=== PATIENT | female | born 1950 | race Caucasian/White ===

== ENCOUNTER 2021-10-18 18:06 | Inpatient (IN) | payer OTHER ==
[~2021-10-18] VITALS: Ht 167.6 cm; Wt 109.8 kg
[2021-10-18 20:19] VITALS: BP 164/66
[2021-10-18] MEDS ORDERED: SPIR25TA6 PO (20:49)
[2021-10-18] MEDS ORDERED: METF-440 PO (20:49)
[2021-10-18] MEDS ORDERED: EZET10TA16 PO (20:49)
[2021-10-18] MEDS ORDERED: LISI10TA29 PO (20:49)
[2021-10-18] MEDS ORDERED: CARV12.52 PO (20:49)
[2021-10-18] MEDS ORDERED: ASPI-1169 PO (20:49)
[2021-10-18] MEDS ORDERED: GLIP10TA11 PO (20:49)
[2021-10-18 20:56] VITALS: BP 164/62
[2021-10-18 21:00] VITALS: BP 154/68
--- NOTE | 2021-10-18 21:00 | NUR ---
RN OPENING NOTES RECEIVED CARE OF PATIENT, TRANSFERRED FROM [facility]. PATIENT IS A/O X4, ABLE TO MAKE NEEDS KNOWN. NO PAIN OR DISCOMFORT EXPRESSED BY PATIENT. PATIENT IS BREATHING ON ROOM AIR, TOLERATING WELL, NO SOB NOTED, O2 SAT 95%. PATIENT ON TELE MONITOR READING SINUS ERIKA WITH BBB HR OF 41, NO ACUTE DISTRESS NOTED. SAFETY MEASURES IMPLEMENTED PER HOSPITAL PROTOCOLS. WILL CARRY OUT ADMITTING ORDERS.
[2021-10-18 22:00] VITALS: BP 173/80
[2021-10-18] MEDS ORDERED: HYDROCODONE/APAP 5/325MG TABLET PO PRN (22:00)
[2021-10-18] MEDS ORDERED: ONDANSETRON HCL/PF 4 MG/2 ML VIAL IVP PRN (22:00)
[2021-10-18] MEDS ORDERED: Z GUARD REMEDY 4 OZ OINT TP PRN (22:00)
[2021-10-18] MEDS ORDERED: ENOXAPARIN SODIUM 40 MG/0.4 ML DISP.SYRIN SQ SCH (22:00)
[2021-10-18] MEDS ORDERED: MAG HYDROX/AL HYDROX/SIMETH 30 ML UDC PO PRN (22:00)
[2021-10-18] MEDS ORDERED: MORPHINE SULFATE INJ 2 MG/ML DISP.SYRIN IV PRN (22:00)
[2021-10-18] MEDS ORDERED: MAGNESIUM HYDROXIDE 30 ML UDC PO PRN (22:00)
[2021-10-18] MEDS ORDERED: ZOLPIDEM TARTRATE 5 MG TABLET PO PRN (22:00)
[2021-10-18] MEDS ORDERED: DEXTROSE 50%-WATER 50 ML DISP.SYRIN IV PRN (22:30)
[2021-10-18] MEDS: IV NS 0.9% 1,000 ML IV PRN (22:58)
[2021-10-18] MEDS: ASPIRIN 81 MG TAB.CHEW PO SCH (22:58)
[2021-10-18 23:00] VITALS: BP 163/68
--- NOTE | 2021-10-18 23:50 | NUR ---
RN NOTES ORDERED LOVENOX 40 MG SCHEDULED FOR 2200 ON 10/18/21 NOT ADMINISTERED. MEDICATION NOT VERIFIED BY PHARMACY, MISSING CREATININE CLEARANCE LAB. HOSPITALIST AFFIRMATIVE ACTION OFFICER KENIA VINSON NOTIFIED, ORDER TO HOLD TONIGHT'S DOSE OF LOVENOX.
[2021-10-19] VITALS (25 sets, daily range): BP systolic 118–178; BP diastolic 38–79
[2021-10-19 04:25] LABS: BASOPHILS # (AUTO) 0.1 K/uL (0.0-0.2); BASOPHILS % (AUTO) 0.5 % (0.0-2.0); EOSINOPHILS % (AUTO) 1.3 % (0.0-6.0); HEMATOCRIT 39 % (33-45); HEMOGLOBIN 12.9 g/dL (11.5-14.8); LYMPHOCYTES # (AUTO) 3.7 K/uL (0.8-4.8); LYMPHOCYTES % (AUTO) 36.3 % (20.0-44.0); MEAN CORPUSCULAR HGB CONC 33 g/dl (31.0-36.0); MEAN CORPUSCULAR VOLUME 92 fL (82-100); MONOCYTES # (AUTO) 0.8 K/uL (0.1-1.30); MONOCYTES % (AUTO) 8.2 % (2.0-12.0); NEUTROPHILS # (AUTO) 5.5 K/uL (1.8-8.9); NEUTROPHILS % (AUTO) 53.7 % (43.0-81.0); PLATELET COUNT (AUTO) 163 K/uL (150-450); RED BLOOD CELL COUNT(AUTO) 4.24 MIL/uL (4.0-5.2); WHITE BLOOD COUNT (AUTO) 10.3 K/uL (4.3-11.0)
[2021-10-19 05:01] LABS: CREATININE 1.1 mg/dL (0.6-1.3); MAGNESIUM 2.2 mg/dL (1.8-2.4); PHOSPHORUS 4.7 mg/dL (2.5-4.9)
[2021-10-19 05:55] LABS: THYROID STIMULATING HORMONE 3.739 uIU/mL (0.358-3.74)
[2021-10-19] MEDS: ENOXAPARIN SODIUM 40 MG/0.4 ML DISP.SYRIN SQ SCH ×2 (07:01→09:05)
--- NOTE | 2021-10-19 07:23 | NUR ---
RN CLOSING NOTES ENDORSED CARE OF PATIENT TO AM NURSE. PATIENT SLEEPING, WAKES UP TO NAME. ON ROOM AIR, TOLERATING WELL. NO SIGNIFICANT FINDINGS UPON ALL NURSING ASSESSMENTS. PATIENT'S TELE MONITOR READS SINUS BRADYCARDIA WITH HR OF 40, NO DISTRESS NOTED ON PATIENT. SAFETY MEASURES KEPT IN PLACE. ENDORSED CARE OF PATIENT TO AM NURSE FOR JOSE.
--- NOTE | 2021-10-19 07:30 | NUR ---
PER DR. DAVIS TO HOLD LOVENOX TODAY'S DOSE FOR POSSIBLE PACEMAKER PLACEMENT. CHARGE NURSE AWARE.
[2021-10-19] MEDS: BLOOD SUGAR DIAGNOSTIC 1 EACH STRIP IN SCH ×4 (08:04→22:15)
--- NOTE | 2021-10-19 08:05 | NUR ---
PER CHARGE NURSE-BENJAMIN DO NOT ADMINISTER INSULIN WTH [id number] AND ALSO DM MEDS LIKE GLUCOPHAGE AND GLUCOTROL D/T NPO STATUS.
[2021-10-19] MEDS: INSULIN REGULAR, HUMAN 100 UNIT/ML 3 ML VIAL SQ PRN ×4 (08:06→22:16)
[2021-10-19] MEDS: SPIRONOLACTONE 25 MG TABLET PO SCH (08:17)
[2021-10-19] MEDS: PANTOPRAZOLE 40 MG TABLET.DR PO SCH (08:17)
[2021-10-19] MEDS: EZETIMIBE 10 MG TABLET PO SCH (08:17)
[2021-10-19] MEDS: LISINOPRIL (10MG) 10 MG TABLET PO SCH (08:18)
[2021-10-19] MEDS: METFORMIN 500 MG TABLET PO SCH ×3 (08:19→17:09)
[2021-10-19] MEDS: glipiZIDE 10 MG TABLET PO SCH ×2 (08:20→09:04)
--- NOTE | 2021-10-19 08:47 | NUR ---
RECEIVED A PHONECALL FROM DR. LAIRD WITH NEW ORDERS NOTED.
[2021-10-19] MEDS ORDERED: LISINOPRIL (10MG) 10 MG TABLET PO SCH (09:00)
[2021-10-19] MEDS: IV NS 0.9% 1,000 ML IV PRN (12:17)
--- NOTE | 2021-10-19 13:55 | NUR ---
DR. ANGELINE CABELLO MADE AWARE OF THE NEGATIVE COVID TEST RESULT. NO ORDER NOTED.
[2021-10-19] MEDS ORDERED: ANESTHESIA TRAY IN PYXIS 1 EA TRAY MC ONE (14:12)
[2021-10-19] MEDS: ASPIRIN 81 MG TAB.CHEW PO SCH (21:50)
[2021-10-20] VITALS (39 sets, daily range): BP systolic 100–188; BP diastolic 51–84
[2021-10-20] MEDS: IV NS 0.9% 1,000 ML IV PRN ×2 (02:02→21:41)
[2021-10-20 05:06] LABS: BASOPHILS % (AUTO) 0.5 % (0.0-2.0); HEMATOCRIT 35 % (33-45); HEMOGLOBIN 11.8 g/dL (11.5-14.8); LYMPHOCYTES # (AUTO) 3.1 K/uL (0.8-4.8); LYMPHOCYTES % (AUTO) 34.6 % (20.0-44.0); MEAN CORPUSCULAR HGB CONC 34 g/dl (31.0-36.0); MEAN CORPUSCULAR VOLUME 91 fL (82-100); MONOCYTES # (AUTO) 0.7 K/uL (0.1-1.30); NEUTROPHILS # (AUTO) 4.9 K/uL (1.8-8.9); NEUTROPHILS % (AUTO) 54.9 % (43.0-81.0); PLATELET COUNT (AUTO) 157 K/uL (150-450); RED BLOOD CELL COUNT(AUTO) 3.87 MIL/uL (4.0-5.2)
[2021-10-20 05:16] LABS: CALCIUM, SERUM 8.7 mg/dL (8.5-10.1); POTASSIUM 4.2 mmol/L (3.5-5.1)
[2021-10-20] MEDS: PANTOPRAZOLE 40 MG TABLET.DR PO SCH (07:30)
--- NOTE | 2021-10-20 07:37 | NUR ---
RN CLOSING NOTES ENDORSED CARE OF PATIENT TO AM NURSE. PATIENT SLEEPING, WAKES UP TO NAME. ON ROOM AIR, TOLERATING WELL. NO SIGNIFICANT FINDINGS UPON ALL NURSING ASSESSMENTS. PATIENT'S TELE MONITOR READS SINUS BRADYCARDIA WITH HR OF 38, NO DISTRESS NOTED ON PATIENT. PATIENT PENDING PACEMAKER PLACEMENT. SAFETY MEASURES KEPT IN PLACE. ENDORSED CARE OF PATIENT TO AM NURSE FOR JOSE.
[2021-10-20] MEDS: BLOOD SUGAR DIAGNOSTIC 1 EACH STRIP IN SCH ×4 (08:11→22:05)
--- NOTE | 2021-10-20 08:24 | NUR ---
RN/ICU PT RECEIVED ALERT AND ORIENTED 4X. SCHEDULED FOR PACEMAKER INSERTION FOR SYMPTOMATIC BRADYCARDIA. BEDSIDE MONITOR SHOWS RATE OF 39, PT IS NOT CURRENTLY SYMPTOMATIC. CONSENT FOR PROCEDURE AND CONSENT FOR ANESTHESIA ARE SIGNED AND IN THE CHART. PRE OP CHECK LIST HAS BEEN COMPLETED AND IS IN THE CHART. PT HAS BEEN KEPT NPO SINCE MIDNIGHT. AM MORNING CARE PROVIDED. 1 BM AND 750 ML REPORTED OVER COMMUNITY HEALTH AGENT, MORNING VOID MEASURED 200ML. LFA #20 PATENT AND RUNNING NS@75ML/HR. NO S/S OF INFECTION OR FEVER. HOB ELEVATED AT 45 DEGREES 2X SIDE RAILS UP BED LOCKED AND IN LOWEST POSITION, CALL LIGHT WITHIN REACH AND EXPLAINED TO PT.
[2021-10-20] MEDS: METFORMIN 500 MG TABLET PO SCH ×2 (09:00→17:39)
[2021-10-20] MEDS: ENOXAPARIN SODIUM 40 MG/0.4 ML DISP.SYRIN SQ SCH (09:00)
[2021-10-20] MEDS: glipiZIDE 10 MG TABLET PO SCH (09:00)
[2021-10-20] MEDS: LISINOPRIL (10MG) 10 MG TABLET PO SCH (09:00)
[2021-10-20] MEDS: EZETIMIBE 10 MG TABLET PO SCH (09:00)
[2021-10-20] MEDS: SPIRONOLACTONE 25 MG TABLET PO SCH (09:00)
[2021-10-20] MEDS ORDERED: IV SET PRIMARY PUMP SET 1 EA INFUS.SET MC ONE (09:31)
[2021-10-20] MEDS ORDERED: IV NS 0.9% 1,000 ML ONE (09:31)
[2021-10-20] MEDS ORDERED: LIDOCAINE HCL/MPF 1% 30 ML VIAL IJ ONE (09:32)
[2021-10-20] MEDS ORDERED: IODIXANOL 150 ML IV ONE (09:33)
[2021-10-20] MEDS ORDERED: NITROGLYCERIN IN 5 % DEXTROSE 250 ML IV ONE (09:33)
[2021-10-20] MEDS ORDERED: hydrALAZINE HCL IV 20 MG VIAL IV PRN (10:30)
[2021-10-20] MEDS ORDERED: FENTANYL PF 100MCG/2ML AMPUL ONE (11:29)
[2021-10-20] MEDS ORDERED: MIDAZOLAM HCL 2 MG/2ML VIAL ONE (11:29)
--- NOTE | 2021-10-20 11:30 | NUR ---
Transport to Test Lab Technician arrived and taking pt to cathlab
[2021-10-20] MEDS ORDERED: IODIXANOL 320MG/ML 50 ML IV ONE (12:20)
[2021-10-20] MEDS ORDERED: HEPARIN SODIUM, PORCINE 1,000 UNIT/ML VIAL ONE (12:23)
[2021-10-20] MEDS ORDERED: HEPARIN SODIUM, PORCINE 5000 UNITS/1 ML VIAL ONE (12:23)
[2021-10-20] MEDS ORDERED: TICAGRELOR 90 MG TABLET PO ONE (12:38)
--- NOTE | 2021-10-20 13:45 | NUR ---
PT RETURNED FROM PRODUCT APPLICATIONS SCIENTIST V/S STABLE SBP IN THE 160'S INTRAVENOUS PACEMAKER IN PLACE DELIVERING RATE OF 60. PT URINATED 750ML ALERT AND ORIENTED 4X. TR BAND IN PLACE AT THE WRIST
--- NOTE | 2021-10-20 19:30 | NUR ---
RN/ICU REPORT GIVEN TO MIGUE. PT RETURNED FROM STRATEGY ANALYST AT 1345 RADIAL ARM BAND PLACED AND NEW TRANSVENOUS CATHETER AND FOR TRANSVENOUS PACING. NEW STENT PLACED. PT AO 4X DENIED PAIN. WAS ABLE TO URINATE 900ML POST OP. NO BLEEDING FROM INSERTION SITES NOTED AFTER ASSESSMENT. IV CATHETER IN L FOREARM BECAME INFILTRATED AND WAS DC. FLUIDS WERE CONTINUED AND DINNER WAS SERVED. BED IS LOCK AND HOB ELEVATED TO 35 DEGREES
--- NOTE | 2021-10-20 19:38 | NUR ---
RN OPENING NOTES RECEIVED CARE OF PATIENT FROM AM NURSE, PATIENT IS S/P STENT AND TEMPORARY PACEMAKER PLACEMENT, PENDING PERMANENT PACEMAKER PLACEMENT SCHEDULED FOR 10/21. PATIENT WILL BE KEPT NPO AFTER MIDNIGHT FOR SCHEDULED PROCEDURE. PATIENT IS A/O X4, ABLE TO MAKE NEEDS KNOWN, NO PAIN OR DISCOMFORT AT THIS TIME. BREATHING ON ROOM AIR, TOLERATING WELL, O2 SAT 99%. TELE MONITOR READS V PACING WITH HR OF 66, NO DISTRESS NOTED ON PATIENT. SAFETY MEASURES KEPT IN PLACE. WILL CARRY OUT PLAN OF CARE.
[2021-10-20] MEDS: ASPIRIN 81 MG TAB.CHEW PO SCH (21:41)
[2021-10-20] MEDS: INSULIN REGULAR, HUMAN 100 UNIT/ML 3 ML VIAL SQ PRN (21:58)
[2021-10-21] VITALS (24 sets, daily range): BP systolic 112–171; BP diastolic 51–81
[2021-10-21 04:36] LABS: BASOPHILS % (AUTO) 0.5 % (0.0-2.0); EOSINOPHILS % (AUTO) 2.1 % (0.0-6.0); HEMATOCRIT 37 % (33-45); HEMOGLOBIN 12.3 g/dL (11.5-14.8); LYMPHOCYTES % (AUTO) 23.9 % (20.0-44.0); MEAN CORPUSCULAR HGB CONC 33 g/dl (31.0-36.0); MEAN CORPUSCULAR VOLUME 90 fL (82-100); MONOCYTES # (AUTO) 0.7 K/uL (0.1-1.30); MONOCYTES % (AUTO) 8.5 % (2.0-12.0); NEUTROPHILS # (AUTO) 5.4 K/uL (1.8-8.9); PLATELET COUNT (AUTO) 158 K/uL (150-450); WHITE BLOOD COUNT (AUTO) 8.3 K/uL (4.3-11.0)
[2021-10-21 04:56] LABS: CALCIUM, SERUM 8.7 mg/dL (8.5-10.1); POTASSIUM 4.1 mmol/L (3.5-5.1)
--- NOTE | 2021-10-21 07:20 | NUR ---
RN CLOSING NOTES ENDORSED CARE OF PATIENT TO AM NURSE. PATIENT SLEEPING, WAKES UP TO NAME. ON ROOM AIR, TOLERATING WELL. NO SIGNIFICANT FINDINGS UPON ALL NURSING ASSESSMENTS. PATIENT IS V PACING WITH HR IN THE 60'S, NO DISTRESS NOTED ON PATIENT. PATIENT PENDING PACEMAKER PLACEMENT. SAFETY MEASURES KEPT IN PLACE. ENDORSED CARE OF PATIENT TO AM NURSE FOR JOSE.
[2021-10-21] MEDS: METFORMIN 500 MG TABLET PO SCH ×2 (08:13→16:33)
[2021-10-21] MEDS: BLOOD SUGAR DIAGNOSTIC 1 EACH STRIP IN SCH ×4 (08:13→22:30)
[2021-10-21] MEDS: PANTOPRAZOLE 40 MG TABLET.DR PO SCH (08:13)
[2021-10-21] MEDS: glipiZIDE 10 MG TABLET PO SCH (08:14)
[2021-10-21] MEDS: SPIRONOLACTONE 25 MG TABLET PO SCH (08:15)
[2021-10-21] MEDS: EZETIMIBE 10 MG TABLET PO SCH (08:15)
[2021-10-21] MEDS: LOSARTAN POTASSIUM 50 MG TABLET PO SCH (08:15)
[2021-10-21] MEDS: TICAGRELOR 90 MG TABLET PO SCH ×2 (08:17→16:33)
[2021-10-21] MEDS: ENOXAPARIN SODIUM 40 MG/0.4 ML DISP.SYRIN SQ SCH (08:20)
--- NOTE | 2021-10-21 10:05 | NUR ---
RN/ICU PT RECEIVED SLEEPING/ RESTING CPAP WAS APPLIED OVER NIGHT. PT WAS KEPT NPO IN PREPARATION FOR SURGERY. WILL NEED TO FOLLOW UP WITH PROVIDERS REGARDING SCHEDULING OF THE PROCEDURE. PT'S TRANSVENOUS PACEMAKER IS APPLIED AND CAPTURING PROGRAMED. RATE SET AT 60 PT'S RATE IS 63. NO S/S OF DISTRESS NOTED. AM CARE PROVIDED PT VOIDED 300CC CLEAR AND STRAW COLORED. HOB ELEVATED TO 35 DEGREES WILL CONTINUE TO MONITOR.
[2021-10-21] MEDS: IV NS 0.9% 1,000 ML IV PRN (11:35)
[2021-10-21] MEDS: INSULIN REGULAR, HUMAN 100 UNIT/ML 3 ML VIAL SQ PRN (12:01)
--- NOTE | 2021-10-21 18:59 | NUR ---
RN/ICU PT RESTING IN BED BREATHING IS EVEN AND UNLABORED SAT IS 99%. BEDSIDE MONITOR SHOWS SR @60 BPM TRANSVENOUS PACEMAKER CAPTURING AND SETTING APPROPRIATE RATE. ENDORED PRE OP CHECK LIST TO ON COMING NURSE. SURGERY SCHEDULED FOR 8AM. HOB ELVATED TO 35 DEGREES BED LOCKED
[2021-10-21] MEDS: ASPIRIN 81 MG TAB.CHEW PO SCH (22:29)
[2021-10-22] VITALS (22 sets, daily range): BP systolic 125–169; BP diastolic 66–84
[2021-10-22] MEDS: IV NS 0.9% 1,000 ML IV PRN (00:01)
--- NOTE | 2021-10-22 00:38 | NUR ---
ICU/LOCK TENDER PT IS NPO FOR SURGERY THIS MORNING. DR SINGER CALLED ASKED A FEW QUESTIONS THEN SAID OK SEE THE PT IN MORNING
[2021-10-22] MEDS: PANTOPRAZOLE 40 MG TABLET.DR PO SCH (07:30)
--- NOTE | 2021-10-22 07:35 | NUR ---
RN/ICU PT RECEIVED AWAKE AND ALERT TEMPORARY PACE MAKER IN PLACE AND CAPTURING, SETTING A RATE OF 60 BPM. V/S STABLE NO S/S OF RESPIRATORY DISTRESS OR DISTRESS OF ANY KIND. PATIENT IS CALM AND READY FOR SURGERY. AM CARE PROVIDED URINE OUTPUT OF 350CC. OR STAFF CALLED CONFIRMING MORNING SURGERY. HOB ELEVATED TO 35 DEGREES BED LOCKED.
[2021-10-22] MEDS ORDERED: IOHEXOL 50 ML IV ONE ×2 (07:50→10:00)
[2021-10-22] MEDS ORDERED: ANESTHESIA TRAY IN PYXIS 1 EA TRAY MC ONE (07:50)
[2021-10-22] MEDS ORDERED: LIDOCAINE 1% INJ 50 ML MDV IJ ONE (07:51)
[2021-10-22] MEDS ORDERED: LIDOCAINE 1%-EPI 1:100,000 20 ML VIAL ONE (07:51)
[2021-10-22] MEDS ORDERED: MIDAZOLAM HCL 2 MG/2ML VIAL ONE (07:51)
[2021-10-22] MEDS ORDERED: BUPIVACAINE MPF 0.5% W/EPI INJ 30 ML VIAL ONE (07:51)
[2021-10-22] MEDS ORDERED: GENTAMICIN 80 MG/2 ML VIAL ONE (07:57)
[2021-10-22] MEDS ORDERED: KETAMINE HCL (500MG/10ML) 50 MG/ML VIAL ONE (08:02)
[2021-10-22] MEDS ORDERED: BUPIVACAINE 0.25% 75 MG/30 ML VIAL ONE (08:03)
[2021-10-22] MEDS ORDERED: SEVOFLURANE 250 ML BOTTLE IH ONE (08:08)
--- NOTE | 2021-10-22 08:10 | NUR ---
PT TAKEN TO SURGERY OR STAFF AND SURGEON PRESENT
[2021-10-22] MEDS: SPIRONOLACTONE 25 MG TABLET PO SCH (08:15)
[2021-10-22] MEDS: LOSARTAN POTASSIUM 50 MG TABLET PO SCH (08:16)
[2021-10-22] MEDS: TICAGRELOR 90 MG TABLET PO SCH ×2 (08:16→16:47)
[2021-10-22] MEDS: EZETIMIBE 10 MG TABLET PO SCH (08:17)
[2021-10-22] MEDS: METFORMIN 500 MG TABLET PO SCH ×2 (08:17→16:47)
[2021-10-22] MEDS: glipiZIDE 10 MG TABLET PO SCH (08:17)
[2021-10-22] MEDS: ENOXAPARIN SODIUM 40 MG/0.4 ML DISP.SYRIN SQ SCH (08:18)
[2021-10-22] MEDS: BLOOD SUGAR DIAGNOSTIC 1 EACH STRIP IN SCH ×4 (13:40→21:32)
[2021-10-22] MEDS: CEFAZOLIN 2 GM in IV D5W 100 ML IV SCH (16:47)
[2021-10-22] MEDS: ACETAMINOPHEN 325 MG TABLET PO PRN (17:44)
[2021-10-22] MEDS: INSULIN REGULAR, HUMAN 100 UNIT/ML 3 ML VIAL SQ PRN ×2 (17:46→21:34)
[2021-10-22] MEDS: ASPIRIN 81 MG TAB.CHEW PO SCH (21:32)
[2021-10-23] VITALS (17 sets, daily range): BP systolic 126–162; BP diastolic 64–94
[2021-10-23] MEDS: CEFAZOLIN 2 GM in IV D5W 100 ML IV SCH ×2 (00:12→08:42)
[2021-10-23] MEDS: ACETAMINOPHEN 325 MG TABLET PO PRN (03:12)
[2021-10-23 05:06] LABS: BASOPHILS % (AUTO) 0.3 % (0.0-2.0); EOSINOPHILS % (AUTO) 2.5 % (0.0-6.0); HEMATOCRIT 33 % (33-45); HEMOGLOBIN 11.3 g/dL (11.5-14.8); LYMPHOCYTES # (AUTO) 1.6 K/uL (0.8-4.8); LYMPHOCYTES % (AUTO) 18.1 % (20.0-44.0); MEAN CORPUSCULAR HGB CONC 34 g/dl (31.0-36.0); MEAN CORPUSCULAR VOLUME 90 fL (82-100); MONOCYTES # (AUTO) 0.7 K/uL (0.1-1.30); MONOCYTES % (AUTO) 8.5 % (2.0-12.0); NEUTROPHILS # (AUTO) 6.2 K/uL (1.8-8.9); NEUTROPHILS % (AUTO) 70.6 % (43.0-81.0); PLATELET COUNT (AUTO) 128 K/uL (150-450); RED BLOOD CELL COUNT(AUTO) 3.69 MIL/uL (4.0-5.2); WHITE BLOOD COUNT (AUTO) 8.7 K/uL (4.3-11.0)
[2021-10-23 05:32] LABS: CALCIUM, SERUM 8.3 mg/dL (8.5-10.1); CREATININE 0.9 mg/dL (0.6-1.3); POTASSIUM 3.7 mmol/L (3.5-5.1)
--- NOTE | 2021-10-23 06:56 | NUR ---
RN/ICU PT IN BED SLEEPING WITH CPAP IN USE. SLEPT INTERMITTENTLY THOUGHT THE NIGHT HER USUAL SLEEP, SUBJECTIVELY STATES THAT SHE SLEPT WELL. PT STATED THAT SHE FELT A FLUTTERING FEELING IN HER CHEST AND BRIEF INTERMITTENT LIGHT HEADEDNESS WHEN STANDING. INQUIRED ABOUT NEW MEDIATIONS. HOB ELVATED TO 30 DEGREES LABS AND PLAN REVIEWED. Addendum: 10/23/21 at 0701 by PERLA NAGEL RN NO V/S STABLE NO S/S OF DISTRESS OF ANY KIND
[2021-10-23] MEDS: BLOOD SUGAR DIAGNOSTIC 1 EACH STRIP IN SCH ×2 (08:12→12:04)
[2021-10-23] MEDS: glipiZIDE 10 MG TABLET PO SCH (08:38)
[2021-10-23] MEDS: METFORMIN 500 MG TABLET PO SCH (08:38)
[2021-10-23] MEDS: EZETIMIBE 10 MG TABLET PO SCH (08:38)
[2021-10-23] MEDS: LOSARTAN POTASSIUM 50 MG TABLET PO SCH (08:38)
[2021-10-23] MEDS: SPIRONOLACTONE 25 MG TABLET PO SCH (08:39)
[2021-10-23] MEDS: TICAGRELOR 90 MG TABLET PO SCH (08:39)
[2021-10-23] MEDS: ENOXAPARIN SODIUM 40 MG/0.4 ML DISP.SYRIN SQ SCH (08:40)
[2021-10-23] MEDS: PANTOPRAZOLE 40 MG TABLET.DR PO SCH (08:43)
--- NOTE | 2021-10-23 08:45 | NUR ---
SEEN PATIENT AND MD WAS MADE AWARE THAT PATIENT STATES "I HAVE A FLUTTERING FEELING," MD NO ORDER MADE.
[2021-10-23] MEDS ORDERED: TICA90TA PO (11:55)
[2021-10-23] MEDS: INSULIN REGULAR, HUMAN 100 UNIT/ML 3 ML VIAL SQ PRN (12:12)
--- NOTE | 2021-10-23 15:34 | NUR ---
PATIENT WAS GIVEN DISCHARGE INSTRUCTIONS/EDUCATION AND VERBALIZED UNDERSTANDING. ALL BELONGINGS TAKEN, SEE BELONGINGS FORM-SIGNED BY PATIENT; TRIXIE MIDLINE WAS REMOVED PER PROTOCOL; LEFT UPPER CHEST-PERMANENT PACEMAKER SITE AND RIGHT FEMORAL DRESSING CLEAN /DRY/ INTACT. PT. MEDICALLY STABLE AT THIS TIME; DENIES DISCOMFORT; ASSISTED BY SALES INSPECTOR VIA WHEELCHAIR UPON DISCHARGE AND PICKED UP BY DAUGHTER.
== END 2021-10-23 15:34 | disposition home or self-care (01) | DRG 225 ==
LOC: ICU 20:01
PROVIDERS: ADMIT Nurse Practitioner Acute Care; ATTEND Internal Medicine
PROC: 027034Z Dilation of Coronary Artery, One Artery with Drug-eluting Intraluminal Device, Percutaneous Approach (ICD-10-PCS; principal; 2021-10-20)
PROC: 4A023N7 Measurement of Cardiac Sampling and Pressure, Left Heart, Percutaneous Approach (ICD-10-PCS; 2021-10-20)
PROC: B211YZZ Fluoroscopy of Multiple Coronary Arteries using Other Contrast (ICD-10-PCS; 2021-10-20)
PROC: 02HK3NZ Insertion of Intracardiac Pacemaker into Right Ventricle, Percutaneous Approach (ICD-10-PCS; 2021-10-20)
PROC: 05H633Z Insertion of Infusion Device into Left Subclavian Vein, Percutaneous Approach (ICD-10-PCS; 2021-10-21)
PROC: B547ZZA Ultrasonography of Left Subclavian Vein, Guidance (ICD-10-PCS; 2021-10-21)
PROC: 02HK3KZ Insertion of Defibrillator Lead into Right Ventricle, Percutaneous Approach (ICD-10-PCS; 2021-10-22)
PROC: 0JH609Z Insertion of Cardiac Resynchronization Defibrillator Pulse Generator into Chest Subcutaneous Tissue and Fascia, Open Approach (ICD-10-PCS; 2021-10-22)
PROC: 02HL3KZ Insertion of Defibrillator Lead into Left Ventricle, Percutaneous Approach (ICD-10-PCS; 2021-10-22)
PROC: B210YZZ Fluoroscopy of Single Coronary Artery using Other Contrast (ICD-10-PCS; 2021-10-22)
DX: I44.2 Atrioventricular block, complete (principal); E11.9 Type 2 diabetes mellitus without complications; I25.10 Atherosclerotic heart disease of native coronary artery without angina pectoris; E66.01 Morbid (severe) obesity due to excess calories; I25.5 Ischemic cardiomyopathy; I10 Essential (primary) hypertension; G47.33 Obstructive sleep apnea (adult) (pediatric); E78.5 Hyperlipidemia, unspecified; Z68.39 Body mass index [BMI] 39.0-39.9, adult; Z79.84 Long term (current) use of oral hypoglycemic drugs
CPT/HCPCS: 33211; 36410; 36415; 71045-TC; 80048-TC; 80061-TC; 82962-TC; 83735-TC; 84100-TC; 84443-TC; 85025-TC; 85347; 85610-TC; 85730-TC; A6209; A6402; C1725; C1769; C1882; C1887; C1894; C9601; G0378; G0500; J0690; J1580; J1644; J1650; J1815; J2250; J2704; J3010; J3490; J7030; J7050; J7060; Q9967